=== PATIENT | female | born 1970 ===

== ENCOUNTER 2018-03-04 20:50 | Emergency (ER) | payer OTHER ==
[~2018-03-04] VITALS: Ht 157.5 cm; Wt 82.6 kg
[~2018-03-04 20:50] MED LIST: AMBIEN5 MG; HUMIRA40 MG/0.1; LYRICA50 MG; PRISTIQUE
[2018-03-04] MEDS ORDERED: TRAZODONE HCL150 MG PO (21:25)
[2018-03-04] MEDS ORDERED: ESKALITH300 MG PO (21:25)
[2018-03-04] MEDS ORDERED: BUPROPION XL300 MG PO (21:26)
[2018-03-04] MEDS ORDERED: G-DOLOGEN 650-1 EACH PO (21:26)
[2018-03-04] MEDS ORDERED: NORFLEX100MG PO (21:27)
[2018-03-04] MEDS ORDERED: CLONAZEPAM1 M1 PO (21:27)
[2018-03-04] MEDS ORDERED: CLONAZEPAM2 M1 PO (21:27)
[2018-03-04] MEDS ORDERED: ABILIFY20 MG PO (21:28)
== END 2018-03-04 22:58 | disposition home or self-care (01) ==
LOC: ER 20:50
DX: R10.2 Pelvic and perineal pain (principal); N83.292 Other ovarian cyst, left side

== ENCOUNTER 2018-11-21 14:48 | Emergency (ER) | payer OTHER ==
[~2018-11-21] VITALS: Ht 160 cm; Wt 84.8 kg
[~2018-11-21 14:48] MED LIST changes: +ABILIFY20 MG PO; +BUPROPION XL300 MG PO; +CLONAZEPAM1 M1 PO; +CLONAZEPAM2 M1 PO; +ESKALITH300 MG PO; +G-DOLOGEN 650-1 EACH PO; +NORFLEX100MG PO; +TRAZODONE HCL150 MG PO
[2018-11-21] MEDS ORDERED: BUSPIRONE HCL5 MG (15:13)
[2018-11-21] MEDS ORDERED: DEPAKOTE ER250 MG (15:14)
[2018-11-21] MEDS ORDERED: MIRALAX510 GM PO (19:49)
[2018-11-21] MEDS ORDERED: DUI500 PO (19:49)
== END 2018-11-21 19:54 | disposition home or self-care (01) ==
LOC: ER 14:48
DX: R10.12 Left upper quadrant pain (principal); K59.09 Other constipation

== ENCOUNTER 2021-01-27 08:44 | Day surgery (SDC) | payer OTHER ==
[~2021-01-27 08:44] MED LIST changes: +BUSPIRONE HCL5 MG; +DEPAKOTE ER250 MG; +DUI500 PO; +EFFEXOR XR75 MG PO; +FOLIC PO; +METHOTREXATE2.5 MG PO; +MIRALAX510 GM PO; +RAYOS5 MG PO
== END 2021-01-27 15:05 | disposition home or self-care (01) ==
LOC: CIR.AMB 08:44
PROVIDERS: ATTEND Orthopaedic Surgery
DX: M77.11 Lateral epicondylitis, right elbow (principal); Z20.822 Contact with and (suspected) exposure to COVID-19

== ENCOUNTER 2021-05-26 17:56 | Emergency (ER) | payer OTHER ==
[~2021-05-26] VITALS: Ht 160 cm; Wt 111.1 kg
[2021-05-26] MEDS ORDERED: DEPAKOTE ER500 MG (18:42)
[2021-05-26] MEDS ORDERED: LASIX20 MG (18:42)
[2021-05-26] MEDS ORDERED: ZYPREXA10 MG (18:43)
[2021-05-26] MEDS ORDERED: EZALLOR SPRINKL20 MG (18:43)
[2021-05-26] MEDS ORDERED: ZESTRIL20 MG (18:44)
[2021-05-26] MEDS ORDERED: CLONAZEPAM2 M1 (18:44)
== END 2021-05-26 21:43 | disposition home or self-care (01) ==
LOC: ER 17:56
DX: R60.0 Localized edema (principal)

== ENCOUNTER 2021-07-08 10:15 | Outpatient (CLI) | payer OTHER ==
[~2021-07-08 10:15] MED LIST changes: +CLONAZEPAM2 M1; +DEPAKOTE ER500 MG; +EZALLOR SPRINKL20 MG; +LASIX20 MG; +ZESTRIL20 MG; +ZYPREXA10 MG
== END 2021-07-08 15:00 | disposition home or self-care (01) ==
LOC: PPH VACUNA 10:15
DX: Z23 Encounter for immunization (principal)

== ENCOUNTER 2021-08-02 17:05 | Emergency (ER) | payer OTHER ==
[~2021-08-02] VITALS: Ht 157.5 cm; Wt 111.6 kg
[2021-08-03] MEDS ORDERED: INTESTINEX680 M1 PO ×2 (02:13→02:15)
[2021-08-03] MEDS ORDERED: PEPCID40 MG PO (02:13)
[2021-08-03] MEDS ORDERED: LEVSIN/SL0.125 MG SL ×2 (02:13→02:16)
[2021-08-03] MEDS ORDERED: ZOFRAN4 MG PO ×2 (02:13→02:15)
[2021-08-03] MEDS ORDERED: CIPRO500 MG PO (02:21)
== END 2021-08-03 02:37 ==
LOC: ER 17:05
DX: K52.89 Other specified noninfective gastroenteritis and colitis (principal); Z03.818 Encounter for observation for suspected exposure to other biological agents ruled out

== ENCOUNTER 2022-03-21 08:00 | Outpatient (CLI) | payer OTHER ==
[~2022-03-21 08:00] MED LIST changes: +CIPRO500 MG PO; +INTESTINEX680 M1 PO; +LEVSIN/SL0.125 MG SL; +PEPCID40 MG PO; +ZOFRAN4 MG PO
== END 2022-03-21 08:30 | disposition home or self-care (01) ==
LOC: PPH VACUNA 08:00
PROVIDERS: ATTEND Emergency Medicine Pediatric Emergency Medicine
DX: Z23 Encounter for immunization (principal); Z71.85 Encounter for immunization safety counseling

== ENCOUNTER 2025-07-29 16:15 | Inpatient (IN) | payer OTHER ==
[~2025-07-29] VITALS: Ht 157.5 cm; Wt 64.4 kg
[2025-07-29 17:07] LABS: URINE APPEARANCE Clear; URINE BILIRRUBIN Negative (NEGATIVE); URINE BLOOD Negative; URINE COLOR Yellow; URINE GLUCOSE Negative (NEGATIVE); URINE KETONE Trace (NEGATIVE); URINE LEUKOCYTE Negative; URINE NITRATE Negative; URINE PROTEIN Negative (NEGATIVE); URINE UROBILINOGEN 1.0 E.U./dl
[2025-07-29 17:12] LABS: URINE BACTERIA 9.5 uL (0.0-1933); URINE EPITHELIAL CELLS 4.1 uL (0.0-38.8); URINE RBC 4.3 uL (0.0-20.8); URINE WBC 2.4 uL (0.0-23.2)
[2025-07-29 17:13] LABS: URINE CAST 0.14 uL (0.0-1.40)
[2025-07-29 17:27] LABS: INR 1.01
[2025-07-29 17:33] LABS: ALT/SGPT 105 U/L (12-78); AST/SGOT 156 U/L (15-37); BILIRUBIN TOTAL 0.28 mg/dL (0.3-1.2); BUN CREA RATIO 13 (7.0-25.0); CREATININE SERUM 1.00 mg/dL (0.55-1.02); GFR 57.78; GLOBULINA 3.5 G/DL (2.4-3.5); GLUCOSE FASTING 100 mg/dL (65-100); LDH 360 U/L (84-246); OSMOLALITY SERUM 283 MOSM/KG (275-295)
[2025-07-29 19:00] VITALS: BP 122/79; O2SAT 98
[2025-07-29] MEDS ORDERED: AMINOCAPROIC ACID 250 MG/ML VIAL IV STA (19:27)
[2025-07-29] MEDS ORDERED: RINGERS SOLUTION,LACTATED 1,000 ML IV SCH (19:30)
[2025-07-29 20:29] LABS: BASO % 0.7 % (0.1-1.2); EOS # 0.16 (0.04-0.54); EOS % 2.0 % (0.7-7.0); LYMPH # 3.62 (1.18-3.74); LYMPH % 45.0 % (19.3-53.1); MEAN PLATELET VOLUME 10.40 fl (9.4-12.4); MONO # 0.41 (0.24-0.82); MONO % 5.1 % (4.7-12.5); NEUT # 3.79 (1.56-6.13); NEUT % 47.1 % (34.0-71.1); RED CELL DISTRIBUTION WIDTH 12.4 % (11.6-14.4)
[2025-07-29 20:56] LABS: ERYTHROCYTE SEDIMENTATION RATE 28 mm/hr (0-30)
[2025-07-29] MEDS ORDERED: FAMOTIDINE/PF 20 MG/2 ML VIAL IV PUSH SCH (21:00)
[2025-07-29] MEDS ORDERED: CLONAZEPAM 0.5 MG TABLET PO SCH (21:00)
[2025-07-29] MEDS ORDERED: TRAZODONE HCL 50 MG TABLET PO SCH (21:00)
[2025-07-30 02:01] VITALS: BP 112/73; O2SAT 98
[2025-07-30 08:33] VITALS: BP 129/82
[2025-07-30] MEDS ORDERED: AMINO ACIDS/PROTEIN HYDROLYS 30 ML BLIST.PACK PO SCH (09:00)
[2025-07-30] MEDS ORDERED: SUCRALFATE 1 G TABLET PO SCH (09:00)
[2025-07-30] MEDS ORDERED: METHYLPREDNISOLONE SOD SUCC 1,000 MG VIAL IV SCH (09:00)
[2025-07-30] MEDS ORDERED: TOPIRAMATE 50 MG PO SCH (09:00)
[2025-07-30] MEDS ORDERED: AMINOCAPROIC ACID 250 MG/ML VIAL IV SCH (09:00)
[2025-07-30] MEDS ORDERED: EFFEXOR 75 MG PO SCH (09:00)
[2025-07-30] MEDS ORDERED: FOLIC ACID 1 MG TABLET PO SCH (09:00)
[2025-07-30] MEDS ORDERED: EFFEXOR XR 150 MG PO SCH (09:00)
[2025-07-30] MEDS ORDERED: ONDANSETRON HCL 2 MG/ML VIAL IV STA (12:28)
[2025-07-30] MEDS ORDERED: ONDANSETRON HCL 2 MG/ML VIAL IV PRN (12:30)
[2025-07-30 17:30] VITALS: BP 122/80; O2SAT 98
[2025-07-30] MEDS ORDERED: RISPERIDONE 1 MG TABLET PO SCH (18:05)
[2025-07-30] MEDS ORDERED: AMINOCAPROIC ACID 20 MG/ML ML IV SCH (21:00)
[2025-07-30] MEDS ORDERED: DOCUSATE SODIUM 100MG CAP PO SCH (21:00)
[2025-07-30] MEDS ORDERED: BISACODYL 5 MG TABLET.EC PO SCH (21:00)
[2025-07-30] MEDS ORDERED: SIMVASTATIN 20 MG TABLET PO SCH (21:00)
[2025-07-31 04:28] VITALS: BP 103/65; O2SAT 96
[2025-07-31 07:31] LABS: ALT/SGPT 85.0 U/L (12-78); AST/SGOT 59.0 U/L (15-37); BILIRUBIN TOTAL 0.38 mg/dL (0.3-1.2); BILIRUBIN,CONJUGATED 0.12 mg/dL (0.0-0.2)
[2025-07-31] MEDS ORDERED: GABAPENTIN 300 MG CAPSULE PO SCH ×2 (09:00→17:00)
[2025-07-31] MEDS ORDERED: DICYCLOMINE HCL 20 MG TABLET PO STA (09:53)
[2025-07-31 09:58] VITALS: BP 137/80; O2SAT 98
[2025-07-31] MEDS ORDERED: DICYCLOMINE HCL 20 MG TABLET PO SCH (17:00)
[2025-07-31 18:16] VITALS: BP 128/85
[2025-07-31] MEDS ORDERED: LORazepam 2 MG/ML VIAL IV PRN (18:45)
[2025-07-31] MEDS ORDERED: BACLOFEN 10 MG TABLET PO SCH (21:00)
[2025-08-01 02:06] VITALS: BP 109/66; O2SAT 95
[2025-08-01 09:34] VITALS: BP 133/70
[2025-08-01] MEDS ORDERED: BUTALB/ACETAMINOPHEN/CAFFEINE 1 TAB TABLET PO PRN (13:30)
[2025-08-01] MEDS ORDERED: BUTALB/ACETAMINOPHEN/CAFFEINE 1 TAB TABLET PO STA (13:49)
[2025-08-01 18:11] VITALS: BP 143/84; O2SAT 97
[2025-08-02 01:56] VITALS: BP 112/65; O2SAT 96
[2025-08-02 08:01] VITALS: BP 118/74
[2025-08-02 08:19] LABS: BASO % 0.1 % (0.1-1.2); EOS # 0.00 (0.04-0.54); EOS % 0.0 % (0.7-7.0); LYMPH # 1.43 (1.18-3.74); LYMPH % 8.8 % (19.3-53.1); MEAN PLATELET VOLUME 11.00 fl (9.4-12.4); MONO # 0.31 (0.24-0.82); MONO % 1.9 % (4.7-12.5); NEUT # 14.37 (1.56-6.13); NEUT % 88.1 % (34.0-71.1); RED CELL DISTRIBUTION WIDTH 12.3 % (11.6-14.4)
[2025-08-02 08:54] LABS: ALT/SGPT 57.0 U/L (12-78); AST/SGOT 16.0 U/L (15-37); BILIRUBIN TOTAL 0.29 mg/dL (0.3-1.2); BUN CREA RATIO 23.0 (7.0-25.0); CREATININE SERUM 0.73 mg/dL (0.55-1.02); GFR 83.08; GLOBULINA 2.9 G/DL (2.4-3.5); GLUCOSE FASTING 131.0 mg/dL (65-100); OSMOLALITY SERUM 288.0 MOSM/KG (275-295)
[2025-08-02] MEDS ORDERED: LevETIRAcetam 500 MG TAB. PO SCH (17:00)
[2025-08-02 18:37] VITALS: BP 140/85; O2SAT 100
[2025-08-03 02:02] VITALS: BP 127/80; O2SAT 97
[2025-08-03 08:00] VITALS: BP 109/70
[2025-08-03 18:43] VITALS: BP 121/78
[2025-08-04 02:04] VITALS: BP 95/50; O2SAT 97
[2025-08-04 08:19] VITALS: BP 99/62; O2SAT 95
[2025-08-04] MEDS ORDERED: BACLOFEN10 MG PO (11:53)
[2025-08-04] MEDS ORDERED: SIMVASTATIN20 MG PO (11:53)
[2025-08-04] MEDS ORDERED: BUTALB-ACETAMI1 EAC2 PO (11:56)
[2025-08-04] MEDS ORDERED: CLONAZEPAM0.5 MG PO (11:57)
[2025-08-04] MEDS ORDERED: GABAPENTIN300 MG PO (11:57)
[2025-08-04] MEDS ORDERED: RISPERDAL1 MG PO (11:58)
[2025-08-04] MEDS ORDERED: KEPPRA500 MG PO (11:58)
[2025-08-04] MEDS ORDERED: TRAZODONE HCL50 MG PO (11:59)
[2025-08-04] MEDS ORDERED: COLACE100 MG PO (12:00)
[2025-08-04] MEDS ORDERED: FLEET BISACODYL5 MG PO (12:00)
[2025-08-04] MEDS ORDERED: FAMOTIDINE20 MG PO (12:01)
[2025-08-04] MEDS ORDERED: CARAFATE1 GM PO (12:01)
[2025-08-04] MEDS ORDERED: FOLIC ACID1 MG PO (12:01)
[2025-08-04] MEDS ORDERED: POM (MEDICAMENTO EN PO ×2 (12:02)
[2025-08-04] MEDS ORDERED: PROTEINEX-18 LI30 ML PO (12:02)
[2025-08-04 16:07] VITALS: BP 111/71; O2SAT 96
== END 2025-08-04 17:00 | DRG 546 ==
LOC: MEDJ 16:15
PROVIDERS: ADMIT Internal Medicine Hematology & Oncology; ATTEND Internal Medicine Hematology & Oncology
PROC: 8E0ZXY6 Isolation (ICD-10-PCS; principal; 2025-07-29)
PROC: BT4JZZZ Ultrasonography of Kidneys and Bladder (ICD-10-PCS; 2025-07-30)
DX: M35.00 Sjogren syndrome, unspecified (principal); G40.802 Other epilepsy, not intractable, without status epilepticus; M79.7 Fibromyalgia; M06.9 Rheumatoid arthritis, unspecified; G43.909 Migraine, unspecified, not intractable, without status migrainosus; K75.9 Inflammatory liver disease, unspecified; E86.0 Dehydration; R04.0 Epistaxis; G62.89 Other specified polyneuropathies; M62.81 Muscle weakness (generalized); Z88.6 Allergy status to analgesic agent
CPT/HCPCS: 240